=== PATIENT | male | born 1955 | race Caucasian/White ===

== ENCOUNTER 2018-06-18 14:28 | Emergency (ER) | payer OTHER ==
[~2018-06-18] VITALS: Ht 195.6 cm; Wt 102.1 kg
[2018-06-18] MEDS ORDERED: TAMS.4ER PO (14:35)
[2018-06-18] MEDS ORDERED: CITA20 PO (14:35)
[2018-06-18] MEDS ORDERED: ASPI81CH PO (14:35)
[2018-06-18 15:42] LABS: BASOPHILS ABSOLUTE AUTO 0.05 K/mm3 (0.00-0.23); BASOPHILS PERCENT AUTO 1 % (0-2); EOSINOPHILS ABSOLUTE AUTO 0.37 K/mm3 (0.00-0.68); EOSINOPHILS PERCENT AUTO 4 % (0-6); Hematocrit 47.9 % (37.0-53.0); Hemoglobin 16.5 g/dL (13.5-17.5); IMMATURE GRAN ABSOLUTE AUTO 0.04 K/mm3 (0.00-0.10); IMMATURE GRAN PERCENT AUTO 0 % (0-1); LYMPHOCYTES ABSOLUTE AUTO 1.51 K/mm3 (0.84-5.20); LYMPHOCYTES PERCENT AUTO 16 % (21-46); MONOCYTES ABSOLUTE AUTO 1.15 K/mm3 (0.16-1.47); MONOCYTES PERCENT AUTO 12 % (4-13); Mean Corpuscular HGB 31.5 pg (26.0-34.0); Mean Corpuscular HGB Conc 34.4 g/dL (31.5-36.5); Mean Corpuscular Volume 92 fL (80-100); Mean Platelet Volume 9.2 fL (9.1-12.4); NEUTROPHILS ABSOLUTE AUTO 6.51 K/mm3 (1.96-9.15); NEUTROPHILS PERCENT AUTO 68 % (41-73); Platelet Count 229 K/mm3 (150-400); RDW Standard Deviation 43.7 fL (35.1-46.3); Red Blood Cell Count 5.23 M/mm3 (4.30-5.90); White Blood Cell Count 9.63 K/mm3 (4.00-11.30)
[2018-06-18 16:16] LABS: Alanine Aminotransfer (ALT/SGP 37 U/L (12-78); Albumin, Blood 3.9 g/dL (3.4-5.0); Albumin/Globulin Ratio 1.1 (0.8-1.8); Alk Phos 75 U/L (50-136); Anion Gap 7 mmol/L (6-16); Aspartate Aminotrans (AST/SGOT 22 U/L (12-37); Bilirubin, Total 0.5 mg/dL (0.1-1.0); Blood Urea Nitrogen 25 mg/dL (8-24); Bun/Creatinine Ratio 24.5 (12.0-20.0); CO2, Blood 27 mmol/L (21-32); Chloride, Blood 107 mmol/L (98-108); Creatinine, Blood 1.02 mg/dL (0.60-1.20); Globulin, Blood 3.6 g/dL (2.2-4.0); Glomerular Filtration Rate >60 (60-); Glucose, Blood 100 mg/dL (70-99); Potassium, Blood 4.2 mmol/L (3.5-5.5); Sodium, Blood 141 mmol/L (136-145); Total Protein, Blood 7.5 g/dL (6.4-8.2)
== END 2018-06-18 16:53 | disposition home or self-care (01) ==
LOC: ER 14:28
PROVIDERS: Nurse Practitioner Family
DX: G44.82 Headache associated with sexual activity (principal); Z88.1 Allergy status to other antibiotic agents; Z79.899 Other long term (current) drug therapy; Z79.82 Long term (current) use of aspirin
CPT/HCPCS: 36415; 70450; 80053; 85025; 99284-25

== ENCOUNTER → 2020-03-01 | Outpatient (CLI) | payer OTHER ==
[~2020-03-01] MED LIST: ASPI81CH PO; CITA20 PO; TAMS.4ER PO
[2020-03-01 17:25] LABS: BASOPHILS ABSOLUTE AUTO 0.01 K/mm3 (0.00-0.23); BASOPHILS PERCENT AUTO 0 % (0-2); EOSINOPHILS ABSOLUTE AUTO 0.61 K/mm3 (0.00-0.68); EOSINOPHILS PERCENT AUTO 10 % (0-6); Hematocrit 44.4 % (37.0-53.0); Hemoglobin 15.4 g/dL (13.5-17.5); IMMATURE GRAN ABSOLUTE AUTO 0.02 K/mm3 (0.00-0.10); IMMATURE GRAN PERCENT AUTO 0 % (0-1); LYMPHOCYTES ABSOLUTE AUTO 0.59 K/mm3 (0.84-5.20); LYMPHOCYTES PERCENT AUTO 9 % (21-46); MONOCYTES ABSOLUTE AUTO 0.99 K/mm3 (0.16-1.47); MONOCYTES PERCENT AUTO 16 % (4-13); Mean Corpuscular HGB 32.3 pg (26.0-34.0); Mean Corpuscular HGB Conc 34.7 g/dL (31.5-36.5); Mean Corpuscular Volume 93 fL (80-100); Mean Platelet Volume 9.7 fL (9.1-12.4); NEUTROPHILS ABSOLUTE AUTO 4.09 K/mm3 (1.96-9.15); NEUTROPHILS PERCENT AUTO 65 % (41-73); Platelet Count 175 K/mm3 (150-400); RDW Coefficient Variation 12.6 % (11.7-14.2); RDW Standard Deviation 43.6 fL (35.1-46.3); Red Blood Cell Count 4.77 M/mm3 (4.30-5.90); White Blood Cell Count 6.31 K/mm3 (4.00-11.30)
== END | disposition home or self-care (01) ==
LOC: LAB 16:45 → LAB SHORT 16:45
PROVIDERS: Physician Assistant
DX: R50.9 Fever, unspecified (principal); R21 Rash and other nonspecific skin eruption
CPT/HCPCS: 85025

== ENCOUNTER 2020-10-31 08:14 | Emergency (ER) | payer OTHER ==
[~2020-10-31] VITALS: Ht 195.6 cm; Wt 104.3 kg
[2020-10-31] MEDS ORDERED: PANT40 PO (08:49)
[2020-10-31 09:07] LABS: BASOPHILS ABSOLUTE AUTO 0.04 K/mm3 (0.00-0.23); BASOPHILS PERCENT AUTO 1 % (0-2); EOSINOPHILS ABSOLUTE AUTO 0.27 K/mm3 (0.00-0.68); EOSINOPHILS PERCENT AUTO 5 % (0-6); Hematocrit 44.1 % (37.0-53.0); Hemoglobin 15.1 g/dL (13.5-17.5); IMMATURE GRAN ABSOLUTE AUTO 0.01 K/mm3 (0.00-0.10); IMMATURE GRAN PERCENT AUTO 0 % (0-1); LYMPHOCYTES ABSOLUTE AUTO 1.45 K/mm3 (0.84-5.20); LYMPHOCYTES PERCENT AUTO 27 % (21-46); MONOCYTES ABSOLUTE AUTO 0.51 K/mm3 (0.16-1.47); MONOCYTES PERCENT AUTO 9 % (4-13); Mean Corpuscular HGB 31.3 pg (26.0-34.0); Mean Corpuscular HGB Conc 34.2 g/dL (31.5-36.5); Mean Corpuscular Volume 91 fL (80-100); Mean Platelet Volume 9.4 fL (9.1-12.4); NEUTROPHILS ABSOLUTE AUTO 3.18 K/mm3 (1.96-9.15); NEUTROPHILS PERCENT AUTO 58 % (41-73); Platelet Count 185 K/mm3 (150-400); RDW Coefficient Variation 12.8 % (11.7-14.2); RDW Standard Deviation 42.6 fL (35.1-46.3); Red Blood Cell Count 4.83 M/mm3 (4.30-5.90); White Blood Cell Count 5.46 K/mm3 (4.00-11.30)
[2020-10-31 09:20] LABS: Alanine Aminotransfer (ALT/SGP 104 U/L (12-78); Albumin, Blood 3.5 g/dL (3.4-5.0); Alk Phos 51 U/L (50-136); Anion Gap 5 mmol/L (6-16); Aspartate Aminotrans (AST/SGOT 65 U/L (12-37); Bilirubin, Total 0.7 mg/dL (0.1-1.0); Blood Urea Nitrogen 25 mg/dL (8-24); Bun/Creatinine Ratio 27.8 (12.0-20.0); CO2, Blood 27 mmol/L (21-32); Calcium, Blood 9.1 mg/dL (8.5-10.1); Chloride, Blood 108 mmol/L (98-108); Globulin, Blood 3.5 g/dL (2.2-4.0); Glomerular Filtration Rate >60 (60-); Glucose, Blood 189 mg/dL (70-99); Potassium, Blood 3.9 mmol/L (3.5-5.5); Sodium, Blood 140 mmol/L (136-145)
== END 2020-10-31 11:30 | disposition home or self-care (01) ==
LOC: ER 08:14
PROVIDERS: Physician Assistant
DX: R20.2 Paresthesia of skin (principal); R20.0 Anesthesia of skin; R73.9 Hyperglycemia, unspecified; N40.0 Benign prostatic hyperplasia without lower urinary tract symptoms; Z88.1 Allergy status to other antibiotic agents; Z79.82 Long term (current) use of aspirin; Z79.899 Other long term (current) drug therapy
CPT/HCPCS: 36415; 70450; 80053; 82947; 84484; 85025; 93005; 93010; 99284-25; J7030

== ENCOUNTER → 2021-10-29 | Outpatient (CLI) | payer OTHER ==
[~2021-10-29] MED LIST changes: +PANT40 PO
== END | disposition home or self-care (01) ==
LOC: LAB SHORT 12:00
DX: R30.0 Dysuria (principal)
CPT/HCPCS: 87086

== ENCOUNTER → 2024-09-21 | Outpatient (CLI) | payer OTHER | LOC: LAB SHORT 09:58 → LAB 09:58 | DX: N39.0 Urinary tract infection, site not specified (principal) | CPT/HCPCS: 87086 ==

== ENCOUNTER 2025-03-29 20:58 | Inpatient (IN) | payer OTHER ==
[~2025-03-29] VITALS: Ht 195.6 cm; Wt 97.8 kg
[2025-03-29 21:43] LABS: BASOPHILS ABSOLUTE AUTO 0.06 K/mm3 (0.00-0.23); BASOPHILS PERCENT AUTO 1 % (0-2); EOSINOPHILS ABSOLUTE AUTO 0.34 K/mm3 (0.00-0.68); EOSINOPHILS PERCENT AUTO 5 % (0-6); Hematocrit 40.5 % (37.0-53.0); Hemoglobin 14.7 g/dL (13.5-17.5); IMMATURE GRAN ABSOLUTE AUTO 0.03 K/mm3 (0.00-0.10); IMMATURE GRAN PERCENT AUTO 0 % (0-1); LYMPHOCYTES ABSOLUTE AUTO 1.61 K/mm3 (0.84-5.20); LYMPHOCYTES PERCENT AUTO 23 % (21-46); MONOCYTES ABSOLUTE AUTO 0.68 K/mm3 (0.16-1.47); MONOCYTES PERCENT AUTO 10 % (4-13); Mean Corpuscular HGB 32.5 pg (26.0-34.0); Mean Corpuscular HGB Conc 36.3 g/dL (31.5-36.5); Mean Corpuscular Volume 89 fL (80-100); Mean Platelet Volume 9.4 fL (9.1-12.4); NEUTROPHILS ABSOLUTE AUTO 4.31 K/mm3 (1.96-9.15); NEUTROPHILS PERCENT AUTO 61 % (41-73); Platelet Count 155 K/mm3 (150-400); RDW Coefficient Variation 12.9 % (11.7-14.2); RDW Standard Deviation 42.1 fL (35.1-46.3); Red Blood Cell Count 4.53 M/mm3 (4.30-5.90); White Blood Cell Count 7.03 K/mm3 (4.00-11.30)
[2025-03-29 21:54] LABS: Albumin, Blood 3.8 g/dL (3.4-5.0); Albumin/Globulin Ratio 1.2 (0.8-1.8); Bilirubin, Total 0.6 mg/dL (0.1-1.0); Calcium, Blood 9.2 mg/dL (8.5-10.1); Creatinine, Blood 0.85 mg/dL (0.60-1.20); Globulin, Blood 3.3 g/dL (2.2-4.0); Total Protein, Blood 7.1 g/dL (6.4-8.2)
--- NOTE | 2025-03-30 02:15 | NUR ---
ADMISSION NOTE PT ARRIVED TO 310 AT 0215. PT WAS AOX4, CALM AND COOPERATIVE. PT HAD BEEN C/O EPISODES OF CHEST PAIN. HE HAS ZIO PATCH ON CHEST. PT REPORTED NO CHEST PAIN OR DISCOMFORT. PT IS INDEPENDENT IN . EXPLAINED CALL LIGHT TO PT, AND PT VERBALIZED UNDERSTANDING. THIS RN TO ASSUME CARE
[2025-03-30 02:22] VITALS: BP 171/78
[2025-03-30] MEDS ORDERED: HydrALAZINE HCl 20 MG / ML 1ML Vial IV PRN (03:35)
[2025-03-30 05:05] LABS: BASOPHILS ABSOLUTE AUTO 0.07 K/mm3 (0.00-0.23); BASOPHILS PERCENT AUTO 1 % (0-2); EOSINOPHILS ABSOLUTE AUTO 0.48 K/mm3 (0.00-0.68); EOSINOPHILS PERCENT AUTO 7 % (0-6); Hematocrit 40.2 % (37.0-53.0); Hemoglobin 14.2 g/dL (13.5-17.5); IMMATURE GRAN ABSOLUTE AUTO 0.01 K/mm3 (0.00-0.10); IMMATURE GRAN PERCENT AUTO 0 % (0-1); LYMPHOCYTES ABSOLUTE AUTO 2.13 K/mm3 (0.84-5.20); LYMPHOCYTES PERCENT AUTO 30 % (21-46); MONOCYTES ABSOLUTE AUTO 0.91 K/mm3 (0.16-1.47); MONOCYTES PERCENT AUTO 13 % (4-13); Mean Corpuscular HGB 32.2 pg (26.0-34.0); Mean Corpuscular HGB Conc 35.3 g/dL (31.5-36.5); Mean Corpuscular Volume 91 fL (80-100); Mean Platelet Volume 9.5 fL (9.1-12.4); NEUTROPHILS ABSOLUTE AUTO 3.58 K/mm3 (1.96-9.15); NEUTROPHILS PERCENT AUTO 50 % (41-73); Platelet Count 171 K/mm3 (150-400); RDW Coefficient Variation 12.7 % (11.7-14.2); RDW Standard Deviation 41.5 fL (35.1-46.3); Red Blood Cell Count 4.41 M/mm3 (4.30-5.90); White Blood Cell Count 7.18 K/mm3 (4.00-11.30)
[2025-03-30 05:26] LABS: LDL/HDL RATIO 3.4; Very Low Density Lipoprot Chol 20 mg/dL (6-32)
[2025-03-30 05:27] LABS: Alanine Aminotransfer (ALT/SGP 33 U/L (12-78); Albumin, Blood 3.6 g/dL (3.4-5.0); Albumin/Globulin Ratio 1.2 (0.8-1.8); Alk Phos 55 U/L (50-136); Anion Gap 9 mmol/L (3-11); Aspartate Aminotrans (AST/SGOT 31 U/L (12-37); Bilirubin, Total 0.7 mg/dL (0.1-1.0); Blood Urea Nitrogen 20 mg/dL (8-24); Bun/Creatinine Ratio 27.7 (12.0-20.0); CHOL/HDL RATIO 4.9; CO2, Blood 24 mmol/L (21-32); Chloride, Blood 108 mmol/L (98-108); Cholesterol 197 mg/dL (50-200); Creatinine, Blood 0.72 mg/dL (0.60-1.20); Globulin, Blood 3.1 g/dL (2.2-4.0); Glomerular Filtration Rate 99 (60-); Glucose, Blood 100 mg/dL (70-99); HDL Cholesterol 40 mg/dL (>39); Low Density Lipoprotein Chol 137 mg/dL (0-110); Sodium, Blood 137 mmol/L (136-145); Total Protein, Blood 6.7 g/dL (6.4-8.2); Triglycerides 101 mg/dL (30-160)
[2025-03-30 05:35] VITALS: BP 148/84
[2025-03-30 07:02] VITALS: BP 146/72
[2025-03-30] MEDS ORDERED: AmLODIPine Besylate 5 MG Tab PO SCH (08:00)
[2025-03-30] MEDS ORDERED: Aspirin 81 MG Chew PO SCH (09:00)
[2025-03-30 11:06] VITALS: BP 150/62
[2025-03-30] MEDS ORDERED: PANTOPRAZOLE SO2010 PO (11:56)
[2025-03-30 16:38] VITALS: BP 154/80
--- NOTE | 2025-03-30 16:39 | NUR ---
Pt. is awake in bed and welcomes my visit. Pt. is pleasant. Spouse is at bedside. Pt. and spouse are known to this door to door fundraising collector from the community. Facilitated an update and listen with empathy and interest. Pt. verbalized his understranding of his condition. Pt. verbalized that he is a man of strong shaq. Prayed with the Pt. Pt. and spouse both verbalize gratitude for the spiritual care visit.
[2025-03-30] MEDS ORDERED: Nitroglycerin 0.4 MG SUBL SL PRN (16:40)
--- NOTE | 2025-03-30 18:28 | NUR ---
SHIFT SUMMARY: ALERT AND ORIENTED X4. INDEPENDENT IN THE ROOM. PATIENT MAKE NEEDS KNOWN. ANGIOGRAM SCHEDULED TOMORROW AND ORDER PLACED IN FRONT OF PATIENT'S CHART. MEDICATED PER EMAR. CALL LIGHT WITHIN REACH, BED LOCKED AND IN LOWEST POSITION.
[2025-03-30 20:03] VITALS: BP 166/78
[2025-03-31] VITALS (17 sets, daily range): BP systolic 136–189; BP diastolic 64–92
--- NOTE | 2025-03-31 04:30 | NUR ---
AOX4. VSS. TELE NSR 70S. NO C/O CP THIS SHIFT. NPO SINCE MIDNIGHT FOR ANGIOGRAM. BED IS LOW AND LOCKED. CALL LIGHT IS WITHIN REACH.
[2025-03-31] MEDS ORDERED: NS 1,000 ML IV ONE ×2 (10:40→11:11)
[2025-03-31] MEDS ORDERED: NS 250 ML IV ONE (10:40)
[2025-03-31] MEDS ORDERED: Heparin Sodium 1000 Units/ML 10ML MDV ONE ×2 (10:40→11:48)
[2025-03-31] MEDS ORDERED: Verapamil HCL 2.5 MG/ML 2ML Injection ONE (10:40)
--- NOTE | 2025-03-31 11:08 | NUR ---
TRANSFER NOTE PT TRANSFERRING TO PCU 11, REPORT GIVEN TO CLAUDIO PICKARD. PT TO ANGIOGRAM AT 1103. PERSONAL BELONGINGS WITH HIS . NO ACUTE ISSUES PRIOR TO THE TRANSFER.
[2025-03-31] MEDS ORDERED: FentaNYL Citrate 50 MCG/ML 2 ML Injection ONE (11:11)
[2025-03-31] MEDS ORDERED: Midazolam HCl 1MG / ML 2ML Vial ONE (11:11)
[2025-03-31] MEDS ORDERED: Tirofiban HCL Monohydrate 3.75 MG/15 ML Vial ONE (11:45)
[2025-03-31] MEDS ORDERED: Aspirin 325 MG Tab ONE (11:45)
[2025-03-31] MEDS ORDERED: Clopidogrel Bisulfate 300 MG TABLET ONE (11:56)
--- NOTE | 2025-03-31 12:21 | NUR ---
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 Spouse is present and waitig in the Pts. room. Facilitated an update. Spouse verbalized gratitude for checking in, and welomed this construction rep returning after the Pt. comes back tothe room.
--- NOTE | 2025-03-31 12:29 | NUR ---
ARRIVAL PATIENT ARRIVES TO UNIT VIA BED AND IS AWAKE & ALERT. BLOOD PRESSURE IS CYCLING, BLOOD PRESSURE ELVATED, THIS RN WILL BE CALLING MD FOR ANTI HYPERTENSIVES. PATIENT DENIED ANY PAIN CURRENTLY. REPORTED HEAD FEELING FOGGY. IS AT BEDSIDE. PATIENT HAS CALL LIGHT WITHIN REACH, BED IN LOWEST POSITION & STATING NOTHING IS NEEDED AT THIS TIME.
[2025-03-31] MEDS ORDERED: Losartan Potassium 25 MG Tab PO SCH (12:40)
--- NOTE | 2025-03-31 13:59 | NUR ---
HEMATOMA: PATIENT HEMATOMA GOT LARGER, PRESSURE WAS APPLIED FOR 15MINUTES AND HEMATOMA HAS RESOLVED AT THIS TIME. VITALS CONTINUE TO CYCLE.
--- NOTE | 2025-03-31 14:45 | NUR ---
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 Pt. is pleasant and is known to this senior information security consultant from the community. Facilitated a long life review which included matters of shaq and belief. Pt. verbalized questions about theology and end of life matters. Pastoral care is given as is theraputic listening. Prayed with Pt. Pt. verbalized an expectation that he might be going home later this afternoon, and also verbalized gratitude for the spiritual care visits.
--- NOTE | 2025-03-31 15:49 | NUR ---
HEMATOMA: PATIENT GOT ANOTHER SMALL HEMATOMA AND PRESSURE WAS APPLIED. MD WAS NOTIFIED AND STATED WHAT WE ARE DOING IS PERFECT.
--- NOTE | 2025-03-31 16:13 | NUR ---
MD ROUNDED: MD ROUNDED AND SPOKE TO PATIENT AND SPOUSE AT BEDSIDE. PATIENT AWARE THERE IS A CHANCE HE WILL BE GOING HOME TODAY. MD IS GOING TO REACH OUT TO VAMP STITCHER TO SEE WHAT HIS THROUGHTS ARE. MD AWARE PATIENT HAS HAD TWO HEMATOMS, REQUIRING NO PAIN MEDS AND ELEVATED BLOOD PRESSURE. MD TO PLACE ORDERS FOR DISCHARGE.
--- NOTE | 2025-03-31 16:38 | NUR ---
MD CALLED: HOSPITALIST CALLED THIS RN NOTIFYING THAT MANUFACTURING ENGINEER CHIEF WOULD LIKE FOR PATIENT TO STAY THE NIGHT AND DISCHARGE TOMORROW. PATIENT & NOTIFIED THEY ARE COOPERATIVE.
--- NOTE | 2025-03-31 16:40 | NUR ---
TR BAND REMOVAL: 2CC'S WERE REMOVED, SOFT NONTENDER AND NO HEMATOMA AT THIS TIME. PATIENT DOES HAVE SOME BRUISING.
--- NOTE | 2025-03-31 16:42 | NUR ---
SHIFT SUMMARY: PATIENT IS ALERT AND ORIENTED X4 & COOPERATIVE WITH HIS CARE, IS ABLE TO MAKE NEEDS KNOWN & USES CALL LIGHT APPROPRIATELY. PATIENT WILL BE STAYING ANOTHER NIGHT AND LOOKING AT DISCHARGE IN THE MORNING. GOT AN ANGIOGRAM TODAY WITH ONE STENT PLACD TO THE LAD. BLOOD PRESSURE HAVE BEEN ELEVATED BUT IS COMING DOWN WITH BLOOD PRESSURE CYCLES. TR BAND OVER RIGHT RADIAL ACCESS SITE. GOT TWO HEMATOMAS DURING THE RECOVER PROCESS. CURRENTLY IN THE PROCESS OF DEFLATING THE TR BAND. IS AT BEDSIDE AND AWAITING FOR THE BAKER TEST TO ROUND. HOSPITALIST ROUNDED AND PATIENT OK WITH STAYING. WOULD LIKE NEW MEDICATIONS TO BE SENT TO [facility] IN [place] UPON DISCHARGE. PATIENT IS STAND BY ASSIST IN THE ROOM AND IS STEADY ON HIS FEET. PATIENT HAS CALL LIGHT WITHIN REACH, BED IN LOWEST POSITION & STATING NOTHING IS NEEDED AT THIS TIME.
--- NOTE | 2025-03-31 18:20 | NUR ---
ANGIOGRAM UPDATE: CLEAR TEGADERM APPLIED, NO HEMATOMA, SLIGHT OOZING OF BLOOD BUT SCANT AMOUNT. HAS WRIST BOARD ON.
--- NOTE | 2025-03-31 19:21 | NUR ---
ASSUMPTION OF CARE PT AWAKE,LYING IN BED.BEDSIDE REPORT COMPLETED,PLAN OF CARE REVIEWED.PT DENIES CHEST PAIN,DENIES GENERALIZED PAIN,DENIES NEEDS.CALL LIGHT AND PT'S ITEMS WITHIN REACH.ASSESSMENT AND TREATMENT ONGOING PER CARE PLAN IN PLACE.
[2025-04-01 02:15] VITALS: BP 119/60
[2025-04-01 04:04] VITALS: BP 128/60
--- NOTE | 2025-04-01 06:14 | NUR ---
PT MONITORED DURING THE SHIFT,BP IMPROVED THROUGHOUT THE NIGHT (SEE VITAL SIGNS FLOWSHEET).NO BLEEDING OR INCREASE IN HEMATOMA NOTED ON THE RIGHT WRIST RADIAL SITE.PT DENIES PAIN AT THE RADIAL SITE,RADIAL PULSE PALPABLE AND STRONG.NO C/O CHEST PAIN/DISCOMFORT.PT DENIES GENERALIZED PAIN AT THIS TIME.CALL LIGHT AND PT'S ITEMS WITHIN REACH.PT REPORTS THAT HE HAD GOOD SLEEP.
[2025-04-01 07:17] VITALS: BP 131/62
--- NOTE | 2025-04-01 07:18 | NUR ---
ASSUMPTION NOTE: THIS RN TO ASSUME CARE OF PATIENT. PATIENT IS AWAKE IN BED WATCHING TV. VITAL SIGNS STABLE AND PATIENT HAS CALL LIGHT WITHIN REACH, BED IN LOWEST POSIITON. RIGHT RADIAL ACCESS SITE IS CLEAN,DRY & INTACT. NO HEMATOMA,CLEAR TEGADERM COVERING AND WRIST BOARD CONTINUES TO BE IN PLACE. PATIENT DENIES ANY CHEST PAIN/PRESSURE OR PAIN IN GENERAL. DENIES NEEDING ANYTHING AT THIS TIME.
[2025-04-01] MEDS ORDERED: Clopidogrel Bisulfate 75 MG Tab PO SCH (09:00)
[2025-04-01] MEDS ORDERED: Aspirin 81 MG Chew PO SCH (09:00)
[2025-04-01] MEDS ORDERED: CLOP75 PO (09:15)
[2025-04-01] MEDS ORDERED: LOSA25 PO (09:15)
--- NOTE | 2025-04-01 09:19 | NUR ---
MD'S ROUNDED: BOTH CARDIOLGIST AND HOSPITALIST WERE AT [facility]. PATIENT IS AWARE HE WILL BE GOING HOME AND NEW MEDCIATIONS FAXED TO [facility].
--- NOTE | 2025-04-01 09:53 | NUR ---
DISCHARGE NOTE: PATIENT LEFT VIA WHEELCHAIR WITH ALL PERSONAL BELONGINGS & DISCHARGE PACKET WITH HIS RIDE. PATIENT TELE TAKEN OFF AND IV TAKEN OUT. PATIENT AWARE NEW MEDCIATIONS WERE SENT TO [facility] AND WOULD NEED TO BE PICKED UP LATER TODAY ONCE THEY OPEN. PATIENT TO FOLLOW UP WITH HIS [facility] TESTER [facility] PRIMARY WITHIN 3 DAYS AND TO CALL TO SCHEDULE THESE APPOINTMENTS.
== END 2025-04-01 09:32 | disposition home or self-care (01) | DRG 322 ==
LOC: ER 20:58 → MEDS 20:59 → ERHOLD 20:59 → MEDS 03-30 02:16 → PCU 03-31 11:13
PROVIDERS: Student in an Organized Health Care Education/Training Program; ADMIT Internal Medicine
PROC: 027034Z Dilation of Coronary Artery, One Artery with Drug-eluting Intraluminal Device, Percutaneous Approach (ICD-10-PCS; principal; 2025-03-31)
PROC: B2111ZZ Fluoroscopy of Multiple Coronary Arteries using Low Osmolar Contrast (ICD-10-PCS; 2025-03-31)
DX: I25.110 Atherosclerotic heart disease of native coronary artery with unstable angina pectoris (principal); N40.0 Benign prostatic hyperplasia without lower urinary tract symptoms; G47.33 Obstructive sleep apnea (adult) (pediatric); R94.39 Abnormal result of other cardiovascular function study; I10 Essential (primary) hypertension; M79.81 Nontraumatic hematoma of soft tissue; Z85.51 Personal history of malignant neoplasm of bladder; Z92.21 Personal history of antineoplastic chemotherapy; Z87.19 Personal history of other diseases of the digestive system; Z79.82 Long term (current) use of aspirin; Z79.899 Other long term (current) drug therapy; Z85.819 Personal history of malignant neoplasm of unspecified site of lip, oral cavity, and pharynx; Z88.0 Allergy status to penicillin; Z95.2 Presence of prosthetic heart valve; Z88.1 Allergy status to other antibiotic agents; Z88.2 Allergy status to sulfonamides; Z88.8 Allergy status to other drugs, medicaments and biological substances
CPT/HCPCS: 36415; 71046; 76937; 78452; 80053; 80061; 83690; 84484; 85025; 85347; 85379; 93005; 93010; 93017; 93306; 93454; 99152; 99153; 99285-25; A9270; A9500; C1769; C1874; C1887; C1894; C9600; G0378; J1644; J2250; J3010; J3246; J7030; J7050; Q9967

== ENCOUNTER 2025-05-24 09:37 | Emergency (ER) | payer OTHER ==
[~2025-05-24] VITALS: Ht 195.6 cm; Wt 99.8 kg
[~2025-05-24 09:37] MED LIST changes: +CLOP75 PO; +LOSA25 PO; +PANTOPRAZOLE SO2010 PO
[2025-05-24 10:18] LABS: BASOPHILS ABSOLUTE AUTO 0.07 K/mm3 (0.00-0.23); BASOPHILS PERCENT AUTO 1 % (0-2); EOSINOPHILS ABSOLUTE AUTO 0.48 K/mm3 (0.00-0.68); EOSINOPHILS PERCENT AUTO 7 % (0-6); Hematocrit 42.3 % (37.0-53.0); Hemoglobin 15.0 g/dL (13.5-17.5); IMMATURE GRAN ABSOLUTE AUTO 0.01 K/mm3 (0.00-0.10); IMMATURE GRAN PERCENT AUTO 0 % (0-1); LYMPHOCYTES ABSOLUTE AUTO 1.39 K/mm3 (0.84-5.20); LYMPHOCYTES PERCENT AUTO 21 % (21-46); MONOCYTES ABSOLUTE AUTO 0.83 K/mm3 (0.16-1.47); MONOCYTES PERCENT AUTO 12 % (4-13); Mean Corpuscular HGB Conc 35.5 g/dL (31.5-36.5); Mean Corpuscular Volume 92 fL (80-100); NEUTROPHILS ABSOLUTE AUTO 3.95 K/mm3 (1.96-9.15); NEUTROPHILS PERCENT AUTO 59 % (41-73); NRBC ABSOLUTE 0.00 K/mm3 (0.00-0.02); NRBC Auto 0.0 /100 WBC (0.0-0.2); Platelet Count 199 K/mm3 (150-400); RDW Coefficient Variation 13.2 % (11.7-14.2); RDW Standard Deviation 43.9 fL (35.1-46.3)
[2025-05-24 10:33] LABS: Alanine Aminotransfer (ALT/SGP 38.0 U/L (12-78); Albumin, Blood 3.9 g/dL (3.4-5.0); Albumin/Globulin Ratio 1.2 (0.8-1.8); Anion Gap 4.0 mmol/L (3-11); Aspartate Aminotrans (AST/SGOT 29.0 U/L (12-37); Bilirubin, Total 1.0 mg/dL (0.1-1.0); Blood Urea Nitrogen 22.0 mg/dL (8-24); CO2, Blood 30.0 mmol/L (21-32); Calcium, Blood 9.0 mg/dL (8.5-10.1); Chloride, Blood 110.0 mmol/L (98-108); Creatinine, Blood 0.92 mg/dL (0.60-1.20); Globulin, Blood 3.3 g/dL (2.2-4.0); Glucose, Blood 111.0 mg/dL (70-99); Potassium, Blood 4.2 mmol/L (3.5-5.5); Sodium, Blood 140.0 mmol/L (136-145); Total Protein, Blood 7.2 g/dL (6.4-8.2)
[2025-05-24] MEDS ORDERED: HYDHCL25 PO (13:40)
[2025-05-24] MEDS ORDERED: Diazepam 5 MG / ML 2ML SYR IV ONE (13:40)
[2025-05-24 14:44] VITALS: BP 137/76
== END 2025-05-24 14:42 | disposition home or self-care (01) ==
LOC: ER 09:37
PROVIDERS: Student in an Organized Health Care Education/Training Program
DX: R07.89 Other chest pain (principal); F41.9 Anxiety disorder, unspecified; Z88.0 Allergy status to penicillin; Z88.1 Allergy status to other antibiotic agents; Z88.2 Allergy status to sulfonamides; Z79.82 Long term (current) use of aspirin; Z79.899 Other long term (current) drug therapy
CPT/HCPCS: 71275; 80053; 84484; 85025; 93005; 93010; 96374; 99285-25; J3360; Q9967